=== PATIENT | male | born 1970 | race Caucasian/White ===

== ENCOUNTER → 2021-05-23 | Outpatient (CLI) | payer OTHER ==
[~2021-05-23] MED LIST: COZAAR25 MG PO; PERCOCET 10-321 EACH PO; RANITIDINE HCL300 MG PO
== END ==
LOC: KOH-I 05-22 13:00
DX: J01.81 Other acute recurrent sinusitis (principal)
CPT/HCPCS: 70486

== ENCOUNTER → 2021-11-21 | Outpatient (CLI) | payer OTHER | LOC: KOH-I 10:27 | DX: R06.02 Shortness of breath (principal); R91.8 Other nonspecific abnormal finding of lung field | CPT/HCPCS: 71046 ==